=== PATIENT | female | born 1985 | race Caucasian/White ===

== ENCOUNTER 2017-07-03 10:00 | Emergency (ER) | payer OTHER ==
[~2017-07-03] VITALS: Ht 165.1 cm; Wt 98.8 kg
[~2017-07-03 10:00] MED LIST: COLACE100 MG PO; ENDOCET 5-3251 EACH PO; FEOSOL325 MG PO; MOTRIN800 MG PO; NATALCARE RX1 TABLE1 PO
[2017-07-03] MEDS ORDERED: LISINOPRIL-HCT1 EACH PO (10:52)
[2017-07-03 11:21] LABS: ADD MIUA? YES; BILIRUBIN NEGATIVE; BLOOD NEGATIVE; COLOR YELLOW ((YELLOW)); GLUCOSE (STRIP) NEGATIVE; KETONES NEGATIVE; LEUKOCYTES MODERATE; NITRITE NEGATIVE; PROTEIN (STRIP) NEGATIVE; SPECIFIC GRAVITY 1.021 (1.000-1.030); UROBILINOGEN 0.2 MG/DL (0.2-1.0)
[2017-07-03 11:34] LABS: BACTERIA RARE /HPF; EPITHELIAL CELLS 1+ /HPF; MUCUS TRACE /LPF; WHITE BLOOD CELLS 0-5 /HPF (0-5)
[2017-07-03 11:37] LABS: EOSINOPHIL (%) 0.2 % (0-5); HEMATOCRIT 41.2 % (36.0-46.0); IMMATURE GRANULOCYTE (%) 0.3 % (0.0-0.7); LYMPHOCYTE COUNT 1.4 K/uL (1.0-2.8); MCH 29.4 PG (29.0-34.0); MCHC 33.5 G/DL (30.0-36.0); MCV 87.7 FL (83-99); MONOCYTE (%) 2.9 % (3-12); MONOCYTE COUNT 0.2 K/uL (0-0.8); NEUTROPHIL (%) 75.4 % (45-76); PLATELET COUNT 168 K/uL (156-360); RBC DIS.WIDTH-CV 12.8 % (11.8-14.6); RBC DIS.WIDTH-SD 41.5 % (39-53); WHITE BLOOD COUNT 6.6 K/uL (4.1-10.2)
[2017-07-03 11:48] LABS: CHLORIDE 107 mEq/L (99-109); POTASSIUM 4.5 mEq/L (3.7-5.4); SODIUM 137 mEq/L (136-147)
[2017-07-03 11:50] LABS: GLUCOSE 95 mg/dL (70-99)
[2017-07-03 11:52] LABS: ANION GAP 8 MEQ/L (2-14); TOTAL BILIRUBIN 0.4 mg/dL (0.0-1.0)
[2017-07-03 11:54] LABS: ALKALINE PHOSPHATASE 78 IU/L (3-129); GFR ESTIMATE (CALCULATED) > 59 mL/min/
[2017-07-03 11:55] LABS: UREA NITROGEN (BUN) 13 mg/dL (9-23)
[2017-07-03 11:57] LABS: LIPASE 13 U/L (1.0-51.0)
[2017-07-03 12:04] LABS: QUANTITATIVE HCG < 4.0 MIU/ML
[2017-07-03] MEDS ORDERED: BENTYL20 MG PO (14:26)
[2017-07-03 14:45] VITALS: BP 118/76
== END 2017-07-03 14:46 | disposition home or self-care (01) ==
LOC: EME 10:00
PROVIDERS: Physician Assistant
DX: R10.9 Unspecified abdominal pain (principal); M54.5 Low back pain; R11.2 Nausea with vomiting, unspecified; R19.7 Diarrhea, unspecified; E83.59 Other disorders of calcium metabolism; N29 Other disorders of kidney and ureter in diseases classified elsewhere; N20.0 Calculus of kidney; I10 Essential (primary) hypertension
CPT/HCPCS: 74176; 76856; 80053; 81003; 83690; 84702; 85025; 99281; 99285; J2405; J3010; J7030